=== PATIENT | female | born 1950 | race Asian ===

== ENCOUNTER 2022-12-27 16:35 | Emergency (ER) | payer OTHER, SELFPAY ==
[2022-12-27 16:49] VITALS: BP 144/70; PULSE 72; RESP 16; TEMP 36.4; O2SAT 99; BMI 19.5
--- NOTE | 2022-12-27 19:03 | DI.CT.S_ITS ---
PROCEDURE: CT HEAD/BRAIN WO CON INDICATIONS: GROUND LEVEL FALL. TECHNIQUE: Noncontrast 4.5 mm thick angled axial sections acquired from the foramen magnum to the vertex, with coronal and sagittal reformats. For radiation dose reduction, the following was used: automated exposure control, adjustment of mA and/or kV according to patient size. COMPARISON: None. FINDINGS: Image quality: Excellent. CSF spaces: Basal cisterns are patent. No extra-axial fluid collections. Ventricles are normal in size and shape. Brain: No midline shift. No intracranial masses or hemorrhage. Quintana-white matter interface is normal. Skull and face: Calvarium and visualized facial bones are intact, without suspicious lesions. Sinuses: Visualized sinuses and mastoids are clear. IMPRESSION: Normal CT of the brain. No intracranial hemorrhage or mass effect Approved by: Az Rios M.D. on 12/27/2022 at 18:18
--- NOTE | 2022-12-27 19:03 | DI.CT.S_ITS ---
PROCEDURE: CT CERVICAL SPINE WO CON INDICATIONS: GLF TECHNIQUE: Noncontrast 3 mm thick sections acquired from the skull base to the T4 level. Sagittal and coronal reformats were then constructed. For radiation dose reduction, the following was used: automated exposure control, adjustment of mA and/or kV according to patient size. COMPARISON: None. FINDINGS: Image quality: Excellent. Bones: No fractures or dislocations. Visualized superior ribs are intact. Soft tissues: Prevertebral soft tissues are normal in thickness. No paravertebral hematomas. No apical pneumothoraces. IMPRESSION: No acute fracture. No osseous lesion. If symptoms and/or clinical suspicion for pathology persist, further assessment with MRI or bone scan may be helpful for further assessment. Dictated by: Stevie Dunne M.D. on 12/27/2022 at 19:20 Approved by: Stevie Dunne M.D. on 12/27/2022 at 19:21
[2022-12-27 19:48] VITALS: BP 140/67; PULSE 78; RESP 18; O2SAT 98
--- NOTE | 2022-12-27 20:11 | ED_ITS ---
HPI - Fall <Silvestre Queen PA-C - Last Filed: 12/27/22 20:16> General Chief Complaint: Fall Stated Complaint: GLF not on thinners Time Seen by Provider: 12/27/22 18:30 History of Present Illness HPI Narrative: 72-year-old female who is not on blood thinners presents to the ED status post a mechanical fall sustained earlier today. Patient was hiking, stepped on a log accidentally, resulting in a mechanical fall backwards, hitting her head. Patient denies loss of consciousness. Patient is not on blood thinners. Patient denies nausea, vomiting. Patient denies some pain at the site of the injury but no general headache. Patient denies feeling lightheaded or dizzy or unwell leading up to the fall. Review of Systems <Silvestre Queen PA-C - Last Filed: 12/27/22 20:16> Review of Systems Narrative: Head injury ROS Unobtainable: All systems reviewed & are unremarkable except as noted in HPI and below Constitutional Constitutional: Denies chills, Denies fatigue, Denies fever(s), Denies frequent falls, Denies lethargy and Denies weakness Eyes Eyes: Denies change in vision, Denies eye discharge, Denies irritation and Denies loss of vision ENT Ears, Nose, Mouth, and Throat: Denies change in voice, Denies dizziness, Denies neck pain, Denies sore throat and Denies throat swelling Cardiovascular Cardiovascular: Denies chest pain, Denies irregular heart rhythm, Denies lightheadedness, Denies palpitations, Denies dyspnea, Denies dyspnea on exertion and Denies orthopnea Respiratory Respiratory: Denies cough, Denies dyspnea, Denies dyspnea on exertion and Denies wheezing Gastrointestinal Gastrointestinal: Denies abdominal pain, Denies change in bowel habits, Denies diarrhea, Denies nausea and Denies vomiting Genitourinary Genitourinary: Denies hematuria, Denies flank pain, Denies urinary incontinence and Denies urinary urgency Musculoskeletal Musculoskeletal: Denies back pain, Denies muscle weakness, Denies neck pain, Denies numbness and Denies tingling Integumentary/Breasts Skin/Breast: Denies pruritus, Denies erythema, Denies rash and Denies wounds Neurologic Neurologic: Denies behavioral changes, Denies confusion, Denies dizziness, Denies frequent falls, Denies loss of vision, Denies numbness, Denies tingling and Denies weakness Psychiatric Psychiatric: Denies anxiety, Denies behavioral changes, Denies confusion, Denies depression, Denies homicidal ideation and Denies suicidal ideation Endocrine Endocrine: Denies fatigue, Denies flushing and Denies palpitations Hematologic/Lymphatic Hematologic/Lymphatic: Denies easy bruising Allergic/Immunologic Allergic/Immunologic: Denies urticaria, Denies throat swelling and Denies wheezing Exam <JULI Lobo Last Filed: 12/27/22 20:16> Narrative Exam Narrative: Const General:?cooperative, healthy appearing and comfortable [facility] Head:? There is a small abrasion with minimal dried blood on the back of the head. No hematoma, skull depressions. Bleeding has stopped with pressure. Ears:?hearing grossly normal bilaterally Nose:?external nose normal Face and sinus:?normal facial exam and sinuses nontender Mouth:?oral mucosae normal Throat:?posterior oropharynx normal Eyes General:?appearance normal, both eyes and all related structures Neck Neck:?normal visual inspection and no lymphadenopathy noted Resp Effort & Inspection:?normal respiratory effort Auscultation:?clear to auscultation bilaterally Cardio Rate:?regular rate Rhythm:?regular rhythm Neuro General:?patient alert, patient awake and patient oriented x3 Initial Vital Signs Initial Vital Signs: Vital Signs Temperature 97.6 F 12/27/22 16:49 Pulse Rate 72 12/27/22 16:49 Respiratory Rate 16 12/27/22 16:49 Blood Pressure 144/70 H 12/27/22 16:49 Pulse Oximetry 99 12/27/22 16:49 Oxygen Delivery Method Room Air 12/27/22 16:49 <Wendi De La Cruz DO - Last Filed: 12/28/22 18:39> Initial Vital Signs Initial Vital Signs: Vital Signs Temperature 97.6 F 12/27/22 16:49 Pulse Rate 72 12/27/22 16:49 Respiratory Rate 16 12/27/22 16:49 Blood Pressure 144/70 H 12/27/22 16:49 Pulse Oximetry 99 12/27/22 16:49 Oxygen Delivery Method Room Air 12/27/22 16:49 Course <JULI Lobo Last Filed: 12/27/22 20:16> Orders Ordered: ED Orders 12/27/22 19:03 CT cervical spine wo con Stat CT head/brain wo con Stat Vital Signs Vital signs: Vital Signs - 8 hr 12/27/22 16:49 12/27/22 19:48 Temperature 97.6 F Pulse Rate 72 78 Respiratory Rate 16 18 Blood Pressure 144/70 H 140/67 Pulse Oximetry 99 98 Oxygen Delivery Method Room Air Room Air <Wendi De La Cruz DO - Last Filed: 12/28/22 18:39> Orders Ordered: ED Orders 12/27/22 19:03 CT cervical spine wo con Stat CT head/brain wo con Stat Vital Signs Vital signs: Vital Signs - 8 hr 12/27/22 16:49 12/27/22 19:48 Temperature 97.6 F Pulse Rate 72 78 Respiratory Rate 16 18 Blood Pressure 144/70 H 140/67 Pulse Oximetry 99 98 Oxygen Delivery Method Room Air Room Air MDM - Fall <Silvestre uQeen PA-C - Last Filed: 12/27/22 20:16> MDM Narrative Medical decision making narrative: 72-year-old female who is not on blood thinners presents to the ED status post a mechanical fall sustained earlier today. CT head and CT C-spine obtained to rule out intracranial bleeds, fractures/dislocations. CT head and CT C-spine without acute findings. Patient's tetanus is up-to-date. There is a small abrasion to the scalp with minimal bleeding, controlled with pressure, no repair indicated. ED return precautions were discussed with patient. Patient verbalized understanding. Discharge Plan Departure Patient Disposition: Home Clinical Impression: Head injury Instructions: How to Prevent Falls Activity Restrictions/Additional Instructions: You were evaluated in the ED today for a head injury from a fall. Your CT head and CT C-spine were normal. Your tetanus is also up-to-date. You may apply ice to the injury, take Tylenol or ibuprofen for pain. Return to the ED if you feel confused, you persistently vomit. Stand Alone Forms: Patient Portal/API <Wendi De La Cruz DO - Last Filed: 12/28/22 18:39> Cosign ED Attending Kathiaature Attestation: I was immediately available in the department for consultation. Documentation has been reviewed.
== END 2022-12-27 19:52 | disposition home or self-care (01) ==
PROVIDERS: Emergency Provider Student in an Organized Health Care Education/Training Program
DX: S00.01XA Abrasion of scalp, initial encounter (principal); W18.30XA Fall on same level, unspecified, initial encounter
CPT/HCPCS: 70450; 72125; 99283